=== PATIENT | female | born 1945 | race Caucasian/White ===

== ENCOUNTER → 2017-08-08 | Outpatient (CLI) | payer OTHER ==
[~2017-08-08] MED LIST: ADULT LOW DOSE81 MG PO; ASPIR 8181 MG PO; ASPIRIN325 PO; ATIVAN1 MG PO; CARVEDILOL12.5 MG PO; CENTRUM; CIPROFLOXACIN500 M1 PO; COREG; COREG25 MG PO; CRESTOR; CRESTOR40 MG PO; CYMBALTA; CYMBALTA60 MG PO; EFFIENT10 MG PO; ELIQUIS5 MG PO; ENAL0; GLUCOPHAGE XR750 MG PO; HYDROCODONE; INSPRA25 MG PO; IRON325 PO; METFORMIN; METFORMIN HCL500 M2 PO; METFORMIN HCL500 MG PO; NEXIUM; NORCO 10-325 T1 EACH PO; NORCO 5-325 TA1 EACH PO; PRILOSEC40 MG PO; SKELAXIN 800 M800 M1 PO; VASOTEC10 MG PO; VITAMIN D1000 UNI1 PO
== END ==
LOC: RAD 13:17
DX: Z12.31 Encounter for screening mammogram for malignant neoplasm of breast (principal)

== ENCOUNTER 2018-07-09 21:12 | Emergency (ER) | payer OTHER ==
[~2018-07-09] VITALS: Ht 152.4 cm; Wt 66.7 kg
[2018-07-09 21:14] VITALS: BP 139/73
[2018-07-09] MEDS ORDERED: SENNA8.6 MG PO (23:56)
[2018-07-09] MEDS ORDERED: NORCO 5-325 TA1 EACH PO (23:56)
[2018-07-10] MEDS ORDERED: NORCO 10-325 T1 EACH PO (10:29)
== END 2018-07-10 01:02 | disposition home or self-care (01) ==
LOC: ER 21:12
DX: S52.592A Other fractures of lower end of left radius, initial encounter for closed fracture (principal); S52.612A Displaced fracture of left ulna styloid process, initial encounter for closed fracture; I10 Essential (primary) hypertension; F32.9 Major depressive disorder, single episode, unspecified; F41.9 Anxiety disorder, unspecified; E11.9 Type 2 diabetes mellitus without complications; E78.5 Hyperlipidemia, unspecified; Z87.442 Personal history of urinary calculi; Z88.2 Allergy status to sulfonamides; Z88.8 Allergy status to other drugs, medicaments and biological substances; Z90.710 Acquired absence of both cervix and uterus; Z90.49 Acquired absence of other specified parts of digestive tract; Z95.5 Presence of coronary angioplasty implant and graft; Z96.641 Presence of right artificial hip joint; W08.XXXA Fall from other furniture, initial encounter; Y93.89 Activity, other specified; Y92.098 Other place in other non-institutional residence as the place of occurrence of the external cause; Y99.8 Other external cause status

== ENCOUNTER 2018-07-10 08:56 | Emergency (ER) | payer OTHER ==
[~2018-07-10] VITALS: Ht 152.4 cm; Wt 66.7 kg
[~2018-07-10 08:56] MED LIST changes: +SENNA8.6 MG PO
[2018-07-10] MEDS ORDERED: NORCO 10-325 T1 EACH PO (10:29)
[2018-07-10 10:46] VITALS: BP 140/82
== END 2018-07-10 10:49 | disposition home or self-care (01) ==
LOC: ER 08:56
DX: S62.102A Fracture of unspecified carpal bone, left wrist, initial encounter for closed fracture (principal); R20.2 Paresthesia of skin; K21.9 Gastro-esophageal reflux disease without esophagitis; I10 Essential (primary) hypertension; F32.9 Major depressive disorder, single episode, unspecified; F41.9 Anxiety disorder, unspecified; E78.5 Hyperlipidemia, unspecified; E11.9 Type 2 diabetes mellitus without complications; Z90.710 Acquired absence of both cervix and uterus; Z86.2 Personal history of diseases of the blood and blood-forming organs and certain disorders involving the immune mechanism; Z88.2 Allergy status to sulfonamides; Z90.49 Acquired absence of other specified parts of digestive tract; Z96.641 Presence of right artificial hip joint; Z95.5 Presence of coronary angioplasty implant and graft; Z87.442 Personal history of urinary calculi; Z88.8 Allergy status to other drugs, medicaments and biological substances; W18.39XA Other fall on same level, initial encounter; Y93.89 Activity, other specified; Y92.89 Other specified places as the place of occurrence of the external cause; Y99.8 Other external cause status

== ENCOUNTER 2018-07-21 05:29 | Day surgery (SDC) | payer OTHER ==
[~2018-07-21] VITALS: Ht 152.4 cm; Wt 68.0 kg
--- NOTE | ~2018-07-21 | O ---
[facility] [place] [address] OPERATIVE REPORT Name: SINA HERRING Room #: 150-2 [facility] M.R.#: [id number] Admission: 07/21/18 Attend Phys: Lisa Perry, Discharge: Date of : 45 Report #: [id number] THIS REPORT FOR: //name// CC: Holley Perry DATE OF SERVICE: 07/21/2018 PREOPERATIVE DIAGNOSES: 1. Left distal radius fracture, intra-articular, with 3 or more intraarticular fragments. 2. Left ulnar shaft fracture. POSTOPERATIVE DIAGNOSES: 1. Left distal radius fracture, intra-articular, with 3 or more intraarticular fragments. 2. Left ulnar shaft fracture. PROCEDURE PERFORMED: Open reduction and internal fixation of left distal radius fracture with 3 or more intraarticular fragments. SURGEON: Lisa Perry MD ANESTHESIA: General mask anesthesia. ESTIMATED BLOOD LOSS: 2 mL. TOURNIQUET TIME: 58 minutes. COMPLICATIONS: None. CONDITION: Stable. DISPOSITION: Recovery room. IMPLANTS USED: Arthrex volar distal radius locking plate. INDICATIONS: The patient is a 73-year-old female with the above-mentioned diagnosis. She elects for operative treatment. The risks, benefits, alternatives and complications were discussed and included but were not limited to infection, damage to vessels or nerves, wound healing problems, stiffness, hardware problems, hardware failure, hardware irritation and stiffness. Informed consent was obtained. The correct extremity was identified and labeled by myself after verbal confirmation of the patient as well as visual confirmation and signed informed consent. [facility] [address] [place] [address] OPERATIVE REPORT Name: SINA HERRING Room #: 150-2 [facility] M.R.#: [id number] Admission: 07/21/18 Attend Phys: Lisa Perry, Discharge: Date of : 45 Report #: [id number] DESCRIPTION OF PROCEDURE: The patient was brought back to the operative room and placed in a supine position. She received preoperative antibiotics. Tourniquet was placed over padding on the patient's left extremity. Left extremity was sterilely prepped and draped in usual fashion/ Timeout was taken to verify correct patient, operative procedure, operative site, all concurred. The arm was elevated, exsanguinated and tourniquet inflated. Next, a volar approach was done in the distal radius of the FCR tendon measuring approximately 8 cm. Dissection was carried down through subcutaneous tissues with tenotomy scissors. The FCR tendon sheath was identified and incised. It was then retracted ulnarly and the subsheath was incised. Digital dissection was taken all the way to the pronator quadratus. It was incised on the radial border, it was elevated off the bone. The fracture was easily identified. It was cleaned of clot and debris and provisionally reduced using fluoroscopic guidance. Next, I was able to reduce it quite nicely. Next, a standard Arthrex volar radius plate was placed on to the bone. The near one was felt to be too narrow and so a standard one was utilized due to the comminution both radially and ulnarly. This plate was chosen in order to capture both fragment radially and ulnarly. It was positioned on to the bone. The cortical screw was placed into the gliding hole of the bone, fairly poor quality consistent with the diagnosis of osteoporosis. Guidewires were placed distally. Once the fracture was reduced, these were eventually removed in order to attempt to get the plate to sit a little more and next to the bone. The distal locking screws were drilled, measured and appropriate size screws were placed. Careful attention placed to ensuring that there was no intra-articular penetration. After each screw was drilled, a measuring device was used to ensure against any intra-articular penetration and to ensure that the screws were in the bone. This was done specifically on the radial side of the screws. The screws were all tightened into the plate. The ulnar most screw had to be positioned using a variable position due to the original position being in the DRUJ. Next, the locking screws were placed in the shaft. These were found to be in good position. The distal ulna was evaluated. It was felt to be stable and in good alignment. The wound was thoroughly irrigated. Final x-rays included an AP, lateral tilt and live fluoroscopic views showed good position of the fracture, good mu-ism of the articular surface and reasonable hardware position. The wound was thoroughly irrigated. An attempt was made to close the pronator quadratus, was unable to be accomplished due to the lack of fascia volarly. The FPL glided smoothly over the distal radius. The plate actually was more prominent radially, and it was directly down to the bone ulnarly and over the course of the FPL tendon. The skin was closed with 4-0 nylon suture. After infiltrating soft tissue approximately 2 mL of 0.25% Marcaine, she was placed in a bulky dressing and a sugar tong splint with the forearm in neutral. All fingers were pink with brisk capillary refill at the conclusion of the case after deflation of tourniquet. [facility] [address] [place] [address] OPERATIVE REPORT Name: SINA HERRING Room #: 150-2 [facility]#: [id number] Admission: 07/21/18 Attend Phys: Lisa Perry, Discharge: Date of : 45 Report #: [id number] All sponge and needle counts were correct. The patient was transferred to postoperative recovery room in stable condition. By: [id number] Lisa Perry MD /saqib
[~2018-07-21 05:29] MED LIST changes: +OMEPRAZOLE40 MG PO; -PRILOSEC40 MG PO
[2018-07-21 09:34] VITALS: BP 115/66
[2018-07-21 10:50] VITALS: BP 115/66
== END 2018-07-21 13:30 | disposition home or self-care (01) ==
LOC: OR 05:29 → TBA 05:30 → OR 09:29
DX: S52.572A Other intraarticular fracture of lower end of left radius, initial encounter for closed fracture (principal); S52.202A Unspecified fracture of shaft of left ulna, initial encounter for closed fracture; I10 Essential (primary) hypertension; E11.9 Type 2 diabetes mellitus without complications; I25.2 Old myocardial infarction; E78.5 Hyperlipidemia, unspecified; K21.9 Gastro-esophageal reflux disease without esophagitis; F32.9 Major depressive disorder, single episode, unspecified; F41.9 Anxiety disorder, unspecified; Z95.5 Presence of coronary angioplasty implant and graft; Z95.0 Presence of cardiac pacemaker; Z98.890 Other specified postprocedural states; Z79.899 Other long term (current) drug therapy; Z87.891 Personal history of nicotine dependence; Z87.442 Personal history of urinary calculi; Z90.49 Acquired absence of other specified parts of digestive tract; Z90.710 Acquired absence of both cervix and uterus; Z98.0 Intestinal bypass and anastomosis status; Z87.19 Personal history of other diseases of the digestive system; Z96.643 Presence of artificial hip joint, bilateral; Z88.2 Allergy status to sulfonamides; Z88.8 Allergy status to other drugs, medicaments and biological substances; Z79.82 Long term (current) use of aspirin; X58.XXXA Exposure to other specified factors, initial encounter; Y93.89 Activity, other specified; Y92.89 Other specified places as the place of occurrence of the external cause; Y99.8 Other external cause status
CPT/HCPCS: 50010; 50101; 50386; 55430; 56526; 57006; 57091; 62110; 62900; 64039; 70005

== ENCOUNTER 2018-12-11 05:36 | Day surgery (SDC) | payer OTHER ==
[~2018-12-11] VITALS: Ht 152.4 cm; Wt 72.6 kg
--- NOTE | ~2018-12-11 | O ---
[facility] [place] [address] [address] OPERATIVE REPORT Name: SINA HERRING Room #: [facility]..#: [id number] Admission: 12/11/18 ������������������ Attend Phys: Lisa Perry, Discharge: 12/11/18 ������������������ Date of : 45 Report #: [id number] THIS REPORT FOR: //name// CC: Holley Perry DATE OF SERVICE: 12/11/2018 PREOPERATIVE DIAGNOSES: Left volar deep plate and screw, painful hardware radius. POSTOPERATIVE DIAGNOSES: Left volar deep plate and screw, painful hardware radius. PROCEDURE PERFORMED: Removal left deep plate and screws radius. SURGEON: Lisa Perry MD. ANESTHESIA: General mask anesthesia. ESTIMATED BLOOD LOSS: Minimal. TOURNIQUET TIME: 16 minutes. COMPLICATIONS: None. CONDITION: Stable. DISPOSITION: Recovery room. INDICATIONS: The patient is a 73-year-old female with the above-mentioned diagnosis. She elects for operative treatment. The risks, benefits, alternatives, complications were discussed that included but were not limited to infection, damage to vessels or nerves, incomplete relief of her symptoms. Informed consent was obtained. The correct extremity was identified and labeled by myself after verbal confirmation of the patient as well as visual confirmation and signed informed consent. DESCRIPTION OF PROCEDURE: The patient was brought back to the operating room and placed on the operating table in the supine position. She received preoperative antibiotics. Tourniquet was placed over padding on the patient's lower extremity. Left upper extremity was sterilely prepped and draped in usual fashion. Final timeout was taken to verify correct patient, operative procedure, operative site, all concurred. The arm was elevated, exsanguinated and tourniquet inflated. Next, a prior surgical incision was utilized volarly. Dissection was carried down through subcutaneous tissue with tenotomy scissors. [address] [address] OPERATIVE REPORT Name: SINA HERRING Room #: [facility].#: [id number] Admission: 12/11/18 ������������������ Attend Phys: Lisa Perry, Discharge: 12/11/18 ������������������ Date of : 45 Report #: [id number] The FCR tendon sheath was identified and incised. The subsheath was incised. The FPL and volar contents were retracted ulnarly. The periosteum was elevated off the plate. Screws were removed. The plate was removed without any difficulty. Rough areas were removed with a rongeur and the holes were curetted. The wound was thoroughly irrigated. Fluoroscopy was brought in, which showed a healed fracture and absence of any hardware. The skin was closed with 4-0 nylon suture. Wound was dressed with Adaptic and sterile gauze. She was placed in a bulky dressing and a volar slab splint. All fingers were pink with brisk capillary refill at the conclusion of the case after deflation of tourniquet. All sponge and needle counts were correct. The patient was transferred to postoperative recovery room in stable condition.. ��������������������������������������������� ���������������������������������������� By: ��������������������������������������������� 1446 [id number] Lisa Perry MD /nt
[2018-12-11 10:45] VITALS: BP 108/60
[2018-12-11 11:01] LABS: CREATININE 0.7 mg/dL (0.6-1.0); POTASSIUM 4.2 mmol/L (3.5-5.1)
[2018-12-11 14:06] VITALS: BP 108/60
--- NOTE | 2018-12-12 15:54 | EKG ---
[place] [address] [facility] [place] [address] ELECTROCARDIOGRAM REPORT Name: SINA HERRING Room #: [facility]#: [id number] ������������������ Admission: 12/11/18 ������������������ Attend Phys: Lisa Perry, Discharge: 12/11/18 ������������������ Date of : 45 Report #: [id number] ����������������������������������������������������������������� [id number] THIS REPORT FOR: //name// [facility] Test Date: 2018-12-11 Test Time: 10:39:26 Pat Name: SINA HERRING Department: Room: 150 3 Gender: F Payable Manager: CHAVEZ : 1945 Requested By: Lisa Perry Order Number: [id number] MD: Eliazar Mora Measurements Intervals [place] Rate: 89 P: 19 [place]: 146 QRS: -8 QRSD: 94 T: 104 QT: 378 QTc: 460 Interpretive Statements Sinus rhythm Left ventricular hypertrophy Abnormal T, lateral leads Compared to ECG 10/27/2013 07:40:57 High lateral T wave inversion is now present Electronically Signed On 12-12-2018 15:54:10 CDT by Eliazar Mora [email or web address] ��������������������������������������������� <ELECTRONICALLY SIGNED> ���������������������������������������� By: Eliazar Mora MD, [facility] ��������������������������������������������� 12/12/18 1554 1039 [id number] Eliazar Mora MD, [facility] /EPI
== END 2018-12-11 14:50 | disposition home or self-care (01) ==
LOC: TBA 05:36 → OR 05:36
PROVIDERS: Orthopaedic Surgery Hand Surgery
DX: T85.698A Other mechanical complication of other specified internal prosthetic devices, implants and grafts, initial encounter (principal); Z68.31 Body mass index [BMI] 31.0-31.9, adult; F32.9 Major depressive disorder, single episode, unspecified; F41.9 Anxiety disorder, unspecified; Z87.891 Personal history of nicotine dependence; I10 Essential (primary) hypertension; E78.5 Hyperlipidemia, unspecified; I21.3 ST elevation (STEMI) myocardial infarction of unspecified site; Z95.5 Presence of coronary angioplasty implant and graft; Z95.0 Presence of cardiac pacemaker; I48.91 Unspecified atrial fibrillation; D64.9 Anemia, unspecified; E11.9 Type 2 diabetes mellitus without complications; Z98.890 Other specified postprocedural states; Z79.899 Other long term (current) drug therapy
CPT/HCPCS: 50010; 50101; 50386; 56526; 57006; 57091; 57179; 62110; 62900; 70005

== ENCOUNTER → 2019-03-19 | Outpatient (CLI) | payer OTHER | LOC: RAD 14:34 | DX: Z12.31 Encounter for screening mammogram for malignant neoplasm of breast (principal) ==

== ENCOUNTER → 2020-07-21 | Outpatient (CLI) | payer OTHER | LOC: RAD 08:02 → BC 08:32 | PROVIDERS: ATTEND Internal Medicine | DX: Z12.31 Encounter for screening mammogram for malignant neoplasm of breast (principal) ==

== ENCOUNTER → 2021-08-31 | Outpatient (CLI) | payer OTHER | LOC: BC 15:19 | PROVIDERS: ATTEND Internal Medicine | DX: Z12.31 Encounter for screening mammogram for malignant neoplasm of breast (principal); N64.59 Other signs and symptoms in breast ==